=== PATIENT | female | born 1960 | race Caucasian/White ===

== ENCOUNTER → 2020-11-17 | Outpatient (CLI) | payer MEDICARE, MEDICAID ==
[~2020-11-17] MED LIST: ATOR1TAB19; FURO20TA2; LISI40TA4; XARE20TA
--- NOTE | 2020-11-17 11:50 | RADONC.CN ---
Radiation Oncology Hx/Consult Radiation Oncology Consult Date of Service: Nov 17, 2020 Pt Identifier Sara Ríos is a 60 year old female with a history of endometrioid adenocarcinoma [id number] FIGO 1, LVSI, and outer 1/3 myometrial involvement present, stage IB. She is s/p GORDON/BSO and LNB on 08/02/[address] Geller. She had vaginal agglutination post-operatively and so was noted to be a poor candidate for VC brachytherapy. She is referred for consideration of adjuvant EBRT for her high intermediate risk endometrial cancer. Diagnosis/Treatment History Oncologic History Presented with post menopausal bleeding in 2019. Had EUA in January 2020 which showed grade 1 endometrial adenocarcinoma, initially opted for hormonal therapy over surgery. Noted in June 2020 to have increased disease burden on US, therefore underwent GORDON/BSO/LNB on 08/02/[address] Geller, final path [id number] FIGO 1 LVSI and outer 1/3 myometrial invasion present. Margins negative. She developed post- operative vaginal agglutination and was deemed poor candidate for VC brachy. Recent data: 10/10/20 Pelvic MRI Prominent pelvic nodes 11/03/20 PET-CT Negative Gynecologic history: Menses @ 13 Menopause @ 59 Hormone use (megace 3 months) No OCP No IVF Interval History Sara feels well she has no pain in the pelvis or bleeding per vagina. No bowel or bladder complaints. Appetite good and weight stable. Does have some chronic fatigue. Is recovering from left DVT. Past Medical History: Arthritis HPL HTN LE DVT Past Surgical History: As above Family History: Throat cancer father Social History: Never smoker Never drinker Allergies / Meds Allergies: Coded Allergies: acetaminophen (Verified Allergy, Severe, 11/17/20) shortness of breath Home Meds Reported Medications Furosemide (Furosemide) 20 Mg Tablet 11/17/20 Atorvastatin Calcium (Atorvastatin Calcium) 10 Mg Tablet 11/17/20 Lisinopril (Lisinopril) 40 Mg Tablet 11/17/20 Rivaroxaban (Xarelto) 20 Mg Tablet 11/17/20 Review of Systems Constitutional: Reports: Fatigue; Denies: Fever, Weakness, Weight Loss Eyes: Denies: Pain HEENT: Denies: Head Aches Skin: Denies: Rash Pulmonary: Denies: Dyspnea, Cough Cardiovascular: Denies: Chest Pain, Palpitations Gastrointestinal: Denies: Abdominal Pain, Diarrhea, Hematochezia Genitourinary: Denies: Dysuria, Frequency, Incontinence Hematologic: Denies: Bruising Musculoskeletal: Denies: Neck pain, Back pain Neurological: Denies: Weakness, Numbness Psych: Reports: Mood Normal Vital Signs Ht 60" Wt 269 lbs BMI 51 T 98 P 72 RR 20 BP 160/95 O2 100% Pain 0 Fatigue 0 General Exam: Alert, Cooperative, No Acute Distress Eye Exam: PERRLA, EOMI ENT EXAM: Atraumatic Neck Exam: Supple Chest Exam: Clear to auscultation, Normal air movement Heart Exam: Rate Normal, Regular Rhythm Abdomen Exam: Normal bowel sounds, Soft Female Exam: Nl Ext Genitalia (Mildly atrophic, labia majora, and minora are normal appearing. Speculum exam performed with some discomfort, the distal vagina is normal appearing, at ~ 4cm there is adherent pale tissue, which I was able to traverse, at 7cm there was significant pale scar. The speculum was withdrawn slowly due to discomfort, no lesions were appreciated. Digital exam revealed no nodularity, however significant palpable adhersions were noted) Extremity Exam: Edema (1+ edema to knees) Skin Exam: Nl turgor and temperature Neuro Exam: Normal Gait, Normal Speech, Cranial Nerves 3-12 NL Psych Exam: Mental status NL Diagnostic and Laboratory Diagnostic Review Radiologic images, relevant labs and pathology reports were personally reviewed and discussed with Ms. Ríos. Assessment and Plan Impression Ms. Ríos is a 60 year old female with a history of endometrial adenocarcinoma [id number] FIGO 1, LVSI, and outer 1/3 myometrial involvement present. She is s/p GORDON/BSO and LNB on 08/02/[address] Geller. She had vaginal agglutination post-operatively and so was noted to be a poor candidate for VC brachytherapy. She is referred for consideration of adjuvant EBRT for her high intermediate risk endometrial cancer. Stage Endometrioid adenocarcinoma [id number] FIGO 1 LVSI outer 1/3 myometrial invasion present stage IB Performance Status ECOG 1 Plan We had an extensive discussion with Ms. Ríos regarding the diagnosis at hand and available therapeutic options. 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 The remaining stenosis of the vaginal cuff and the uncertainty surrounding the small but prominent BL pelvic nodes makes her a good candidate for EBRT, as opposed to VC brachy for this high intermediate risk disease. Her recent PET-CT was negative, which is reassuring. For treatment we discussed adjuvant EBRT 45 Gy in 25 fractions with VMAT planning. This is associated with a meaningful decrease in the risk of loco- regional recurrence. We discussed the logistics of receiving radiation therapy in detail including the need for a 1-time planning session. This can occur next week. We reviewed the side effects of treatment including fatigue, diarrhea, vaginal stenosis, and bladder irritation. She will benefit from using a vaginal dilator post EBRT. After discussing the risks, benefits and alternatives to radiation therapy, Ms. Ríos was amenable to pursuing radiotherapy. All questions were answered to the patient's satisfaction. We instructed the patient that if there were any questions,concerns or changes in clinical status in the interim to contact us. Recommendations Adjuvant EBRT 45 Gy in 25 fractions with VMAT Simulation next week Billing Statement Total time of [45] minutes was spent preparing for the visit [3], obtaining HPI [8], examining the patient [4], reviewing diagnostic tests [4], discussing management options [15], coordinating care [3], and writing this note [8]. NORMA NJ MD Nov 17, 2020 11:50
== END ==
LOC: M ONCR 09:44
PROVIDERS: ATTEND General Practice
DX: C54.1 Malignant neoplasm of endometrium (principal); N90.89 Other specified noninflammatory disorders of vulva and perineum; Z79.899 Other long term (current) drug therapy; Z88.6 Allergy status to analgesic agent; Z90.710 Acquired absence of both cervix and uterus

== ENCOUNTER 2020-12-30 09:02 | Outpatient (RCR) | payer MEDICARE, MEDICAID | END 2021-01-01 | LOC: M ONCR 09:02 | PROVIDERS: ATTEND General Practice | DX: C54.1 Malignant neoplasm of endometrium (principal) ==

== ENCOUNTER → 2021-01-31 | Outpatient (RCR) | payer MEDICARE, MEDICAID | LOC: M ONCR 01-02 09:26 | PROVIDERS: ATTEND General Practice | DX: C54.1 Malignant neoplasm of endometrium (principal) ==

== ENCOUNTER 2021-02-03 08:55 | Outpatient (RCR) | payer MEDICARE, MEDICAID | END 2021-03-03 | LOC: M ONCR 08:55 | PROVIDERS: ATTEND General Practice | DX: C54.1 Malignant neoplasm of endometrium (principal) ==

== ENCOUNTER → 2021-05-03 | Outpatient (CLI) | payer MEDICARE, MEDICAID | LOC: M ONCR 12:19 | PROVIDERS: ATTEND General Practice | DX: C54.1 Malignant neoplasm of endometrium (principal); Z90.710 Acquired absence of both cervix and uterus; Z90.89 Acquired absence of other organs; Z92.3 Personal history of irradiation ==

== ENCOUNTER → 2021-11-03 | Outpatient (CLI) | payer MEDICARE, MEDICAID | LOC: M ONCR 12:03 | PROVIDERS: ATTEND General Practice | DX: Z08 Encounter for follow-up examination after completed treatment for malignant neoplasm (principal); Z85.42 Personal history of malignant neoplasm of other parts of uterus; Z79.01 Long term (current) use of anticoagulants; Z79.899 Other long term (current) drug therapy; Z88.6 Allergy status to analgesic agent; Z92.3 Personal history of irradiation ==

== ENCOUNTER → 2022-05-11 | Outpatient (CLI) | payer MEDICARE, MEDICAID | LOC: M ONCR 12:22 | PROVIDERS: ATTEND General Practice | DX: C64.1 Malignant neoplasm of right kidney, except renal pelvis (principal); Z79.01 Long term (current) use of anticoagulants; Z79.899 Other long term (current) drug therapy; Z92.3 Personal history of irradiation ==

== ENCOUNTER → 2023-05-14 | Outpatient (CLI) | payer MEDICARE, MEDICAID | LOC: M ONCR 12:26 | PROVIDERS: ATTEND General Practice | DX: C54.1 Malignant neoplasm of endometrium (principal); Z71.2 Person consulting for explanation of examination or test findings; Z79.01 Long term (current) use of anticoagulants; Z79.899 Other long term (current) drug therapy; Z88.6 Allergy status to analgesic agent; Z90.710 Acquired absence of both cervix and uterus; Z90.722 Acquired absence of ovaries, bilateral; Z90.79 Acquired absence of other genital organ(s); Z92.3 Personal history of irradiation ==

== ENCOUNTER → 2023-07-19 | Outpatient (REF) | payer MEDICARE, MEDICAID ==
[2023-07-25 21:08] LABS: CA Oxalate Dihy 40 % (.); Ca Ox Monohydrate 60 % (.); Size 2x2 mm (.)
== END ==
LOC: M SMT 17:10
PROVIDERS: ATTEND Nurse Practitioner Family
DX: N20.0 Calculus of kidney (principal)

== ENCOUNTER → 2024-05-13 | Outpatient (CLI) | payer MEDICARE, MEDICAID | LOC: M ONCR 12:45 | PROVIDERS: ATTEND General Practice | DX: Z08 Encounter for follow-up examination after completed treatment for malignant neoplasm (principal); Z85.42 Personal history of malignant neoplasm of other parts of uterus; Z90.710 Acquired absence of both cervix and uterus; Z90.722 Acquired absence of ovaries, bilateral; Z90.79 Acquired absence of other genital organ(s); Z92.3 Personal history of irradiation; Z88.6 Allergy status to analgesic agent; Z79.01 Long term (current) use of anticoagulants; Z79.899 Other long term (current) drug therapy ==